=== PATIENT | male | born 1995 | race Caucasian/White ===

== ENCOUNTER 2016-09-27 21:22 | Emergency (ER) | payer OTHER ==
[~2016-09-27] VITALS: Ht 182.9 cm; Wt 100.5 kg
[~2016-09-27 21:22] MED LIST: ADDERALL XR 3030 MG PO; ADDERALL20 MG PO; BACTRIM,SEPT1 TABLET PO; CLEOCIN300 MG PO; HYDROCODON-ACE1 EAC7 PO; KEFLEX500 MG PO; LEVAQUIN500 MG PO; MOTRIN400 MG PO; NO HOME MEDS
[2016-09-28] MEDS ORDERED: SILVADENE20 GM TP (00:59)
[2016-09-28] MEDS ORDERED: NORCO 5/3251 TABLET PO (01:00)
[2016-09-28 01:47] VITALS: BP 127/89
== END 2016-09-28 01:55 | disposition home or self-care (01) ==
LOC: EME 21:22
DX: T22.211A Burn of second degree of right forearm, initial encounter (principal); T31.0 Burns involving less than 10% of body surface; X10.1XXA Contact with hot food, initial encounter; Y93.G3 Activity, cooking and baking; Y99.0 Civilian activity done for income or pay; F17.200 Nicotine dependence, unspecified, uncomplicated
CPT/HCPCS: 99281; 99284